=== PATIENT | male | born 1975 | race Hispanic/Latino ===

== ENCOUNTER 2020-04-20 01:25 | Inpatient (IN) | payer SELFPAY ==
[~2020-04-20 01:25] MED LIST: CALCIUM CHLORIDE 1,000 MG/10 ML SYRINGE IV ONE; EPINEPHrine 1 MG/10 ML SYRINGE ONE; SODIUM BICARB 8.4% 50 MEQ/50 ML SYRINGE IV ONE
[2020-04-20] MEDS ORDERED: NORepinephrine/NS 4 MG-250 ML 4 MG/250 ML BAG IV ONE ×4 (01:42→10:28)
[2020-04-20] MEDS: NORepinephrine/NS 4 MG-250 ML 4 MG/250 ML BAG IV SCH ×2 (01:50→05:48)
[2020-04-20] MEDS ORDERED: SODIUM CHLORIDE 0.9% 1000 ML 1,000 ML IV ONE ×3 (01:50→06:41)
[2020-04-20] MEDS ORDERED: LIP THERAPY VASELINE TP PRN (01:52)
[2020-04-20] MEDS ORDERED: MINERAL OIL/PETROLATUM, WHITE OPHTH OINT 3.5 GM OU PRN (01:52)
--- NOTE | 2020-04-20 02:03 | Emergency Department Report ---
ED CPR HPI - General Stated Complaint: CARDIAC ARREST Time Seen by Provider: 04/20/20 01:50 Source: EMS Mode of arrival: Stretcher Limitations: Other (cardiac arrest, unresponsive patient) - History of Present Illness Initial Comments: CC: cardiac arrest HPI: THis is a 44 yo male with hx of diabetes mellitus, heroin and methamphetamine use who presents in cardiac arrest. Last seen awake/normal around midnight. Friends at a house called 911. EMS arrived. Found patient un responsive. No pulse. Rhythm asystole. Patient was given two doses of epinephrine as well as Narcan. Blood glucose was normal.. Intubated with ETT. IO device inserted at left tibia. Patient was in his normal state of health today. Unclear if patient used heroin or methamphetamine this evening. Hx obtained by sister Sangita Man . Sister explained that her brother the patient Mr. Pichardo has not used drugs in over 10 years. He was recently evicted from his parents home 1-1/2 months ago. He did not get along with his father. Patient may have been depressed. He lost his long-term girlfriend of several years in November. Girlfriend in November. Sister also explained that patient has severe sepsis due to cellulitis 3 years ago. He was evaluated treated at [facility]. He required mechanical ventilation at that time due to severe illness. Complaint: found unresponsive Place: other (found at a house) Initial Findings in the Field: unresponsive, no pulse ROSC in the Field: No Treatments Prior to Arrival: intubation, epinephrine mgs # (2 doses of epinephrine) - Related Data Allergies Allergy/AdvReac Type Severity Reaction Status Date / Time Unable to Assess Allergy Unverified 04/20/20 03:05 ED Review of Systems ROS: Stated complaint: CARDIAC ARREST Other details as noted in HPI Comment: Unobtainable due to pts medical conditions (Cardiac arrest, unresponsive patient) ED Past Medical Hx - Past Medical History Hx Diabetes: Yes Additional medical history: Polysubstance abuse - Surgical History Additional Surgical History: Unable to obtain information due to patient's clinical status - Social History Substance Use Type: Heroin, Methamphetamines ED Physical Exam - General Limitations: Other (Unresponsive status, cardiac arrest) General appearance: other (Lifeless, no spontaneous movement, eyes open) - Head Head exam: Present: atraumatic, normocephalic - Eye Eye exam: Present: other (Fixed dilated nonreactive pupils, dry corneas) - ENT ENT exam: Present: other (Pale cyanotic mucosa, no oropharyngeal swelling, no f acial trauma) - Neck Neck exam: Present: normal inspection - Respiratory Respiratory exam: Present: other (Equal coarse breath sounds with ventilation, no spontaneous respirations) - Cardiovascular Cardiovascular Exam: Present: other (No auscultated cardiac sounds) - GI/Abdominal GI/Abdominal exam: Present: soft, distended - Extremities Exam Extremities exam: Present: other (No deformity, IO device inserted left tibia) - Neurological Exam Neurological exam: Present: other (No response to pain or voice) - Psychiatric Psychiatric exam: Present: other (No response to pain or voice) - Skin Skin exam: Present: cyanosis, pallor ED Course Vital Signs 04/20/20 04/20/20 04/20/20 01:28 01:30 01:45 Pulse Rate 114 H 124 H 67 Respiratory 120 H 23 20 Rate Blood Pressure 69/27 O2 Sat by Pulse 89 Oximetry 04/20/20 04/20/20 04/20/20 02:00 02:09 02:16 Pulse Rate 83 90 84 Respiratory 20 8 L Rate Blood Pressure 123/70 161/90 147/88 O2 Sat by Pulse 100 100 100 Oximetry 04/20/20 04/20/20 04/20/20 02:30 02:46 03:00 Pulse Rate 90 89 93 H Respiratory 14 20 16 Rate Blood Pressure 159/92 143/74 149/73 O2 Sat by Pulse Oximetry 04/20/20 04/20/20 04/20/20 03:15 03:31 04:25 Pulse Rate 94 H 94 H 95 H Respiratory 20 13 Rate Blood Pressure 153/81 146/83 153/81 O2 Sat by Pulse 100 Oximetry 04/20/20 04/20/20 04/20/20 04:30 04:45 05:01 Pulse Rate 96 H 97 H 97 H Respiratory 20 21 21 Rate Blood Pressure 111/67 116/59 93/41 O2 Sat by Pulse 100 100 100 Oximetry - Central Line Placement Right Femoral Consent Obtained: emergent situation Time Out Performed: Yes Patient Placed on Monitor/Pulse Ox: Yes Prep: mask, gown, gloves, other (Drape cap) Central Line Prep: Povidone-Iodine 1%, sterile drapes applied Ultrasound Used for Placement: No Central Line Lumen Inserted: triple Bloods Obtained for Lab: Yes Central Line Position: good blood return, sutured in place with nyl, other (Biopatch) Dressing Applied: Tegaderm, other (Biopatch) Patient Tolerated Procedure: well Complications: none ED Medical Decision Making - Lab Data Result diagrams: 04/20/20 02:08 04/20/20 Unknown - Medical Decision Making Patient presents in cardiac arrest. History of polysubstance abuse diabetes mellitus. Patient was glucose hemic according to EMS report. Patient received approximately 20 to 25 minutes of ACLS resuscitation Per EMS. Upon arrival patient's initial rhythm was PEA bradycardia. No initial pulse upon arrival. With resuscitation, return of spontaneous circulation achieved in the emergency department. I Then inserted femoral central venous catheter. Patient was initially normotensive after resuscitation. He then developed hypotension. He received Levophed. Patient significant other arrived. I spoke extensively with significant other. I informed her that I was concerned for brain . SHe understands patient is in critical condition. I also spoke with mother per phone. Differential diagnosis includes heroin overdose, acute myocardial infarction, pulmonary embolism. Mrs. Sangita Man will be the clinical decision maker. Her phone number is I do not see evidence of infection. I suspect lactic acidosis is due to cellular ischemia due to lack of blood flow to the organs. I also suspect AST ALT is related to severe shock due to circulatory collapse. I spoke with Dr. Sandhu radiologist regarding multiple critical findings on CT imaging. CT head revealed diffuse edema loss of sulci. Possible subarachnoid hemorrhage. CT of the chest showed moderate sized pneumothorax and right-sided rib fractures. CT abdomen revealed dilated small bowel. Radiologist stated that small bowel had findings of hypoperfusion. I spoke with Neurosurgeon Dr. Thao who recommended brain examination by neurology or critical care physician. Dr. Lawrence critical care physican I suspect pneumothorax and right-sided rib fractures were the result of chest compressions, not trauma. Due to patient's grave prognosis, I have elected not to insert thoracostomy tube. I Anticipate withdrawal of care. I spoke with sister who is a STE[employer]AR OPERATOR Emergency and former ER nurse. She understands dire situation. Critical Care Time: Yes Critical care time in (mins) excluding proc time.: 70 Critical care attestation.: If time is entered above; I have spent that time in minutes in the direct care of this critically ill patient, excluding procedure time. 70 minutes of critical care time excluding procedures were used in the care of the patient. I am in charge nurse received radio call from EMS. Once we receive the report, we called respiratory therapist nursing team and phlebotomy to the bedside. We prepared for patient's arrival with bedise VIDEO laryngoscopy, suction and ACLS box. Team awaited for patient's arrival in the resuscitation room. Upon patient's arrival we immediately began chest compressions and ACLS resuscitation while obtaining history from EMS at the bedside. I discussed treatment plan with the nursing team members and respiratory therapist. I assisted respiratory therapist with ventilation settings. Patient's initial oxygen saturation 72% with FiO2 100% PEEP of 10. I reviewed electronic record. I kept the family members informed. I had extensive conversations with girlfriend, mother and sister. I discussed end of life measures with sister who is a healthcare worker. Patient required multiple interventions and reassessments. I was unable to attend to other patients for 40 minutes due to patient's critical status. ED Disposition Clinical Impression: Cardiac arrest, Anoxic encephalopathy, Shock, cardiogenic, Polysubstance abuse, Accidental drug overdose Disposition: DC-09 OP ADMIT IP TO THIS HOSP Is pt being admited?: Yes Condition: Poor
[2020-04-20 02:35] LABS: Mean Corpuscular HGB Conc 31 % (32-34); Mean Corpuscular Volume 97 fl (84-94); Platelet Count 200 K/mm3 (140-440); Red Blood Count 4.34 M/mm3 (3.65-5.03); Red Cell Distribution Width 15.2 % (13.2-15.2)
[2020-04-20 02:36] LABS: Hematocrit 42.2 % (35.5-45.6)
[2020-04-20 02:38] LABS: Basophils # (Auto) 0.1 K/mm3 (0.0-0.1); Basophils % (Auto) 0.5 % (0.0-1.8); Eosinophils # (Auto) 0.1 K/mm3 (0.0-0.4); Lymphocytes % (Auto) 33.9 % (13.4-35.0); Monocytes # (Auto) 0.8 K/mm3 (0.0-0.8); Monocytes % (Auto) 5.6 % (0.0-7.3)
--- NOTE | 2020-04-20 02:41 | XRay Report ---
CHEST 1 VIEW INDICATION: Altered Mental Status. COMPARISON: None . FINDINGS: SUPPORT DEVICES: Endotracheal tube in satisfactory position at the level the clavicles. NG tube tip p rojects at the GE junction and should be advanced another 5-10 cm HEART: Within normal limits. LUNGS/PLEURA: Moderate interstitial edema. No appreciable effusion. ADDITIONAL FINDINGS: None. IMPRESSION: 1. Moderate interstitial edema. 2. Support devices as above. Signer Name: Stephan Sandhu MD Signed: 04/20/2020 2:37 AM Workstation Name: [id number]
[2020-04-20 03:21] LABS: Albumin 3.2 g/dL (3.9-5); Calcium 9.9 mg/dL (8.4-10.2)
[2020-04-20] MEDS ORDERED: SODIUM CHLORIDE 0.9% 1000 ML 1,000 ML ONE ×2 (04:29→06:38)
[2020-04-20] MEDS ORDERED: ACETAMINOPHEN 325 MG TAB PO PRN (05:17)
--- NOTE | 2020-04-20 05:31 | Cat Scan Report ---
CTA chest with contrast CT abdomen and pelvis with contrast INDICATION : Post-Cardiac Arrest / Found down and unresposive. TECHNIQUE: Axial imaging performed through the chest, with contrast bolus timing set to maximize opa cification of the pulmonary arteries. 3-plane MIP reformatted images were obtained. Axial imaging was then performed through the abdomen and pelvis with the use of contrast. [facility] CT dose reduction for ALARA by means of automated exposure control. 100 mL of intravenous contrast administered. COMPARISON: None FINDINGS: CTA CHEST: Bolus: Contrast bolus timing is adequate. PTE: No filling defect is present to suggest PTE. Mediastinum: Heart and great vessels appear normal. No pathologic mediastinal adenopathy. Lungs: There is streaky airspace disease in both lungs in a moderate size pneumothorax on the right. Bones: Several segmental right-sided rib fractures are present involving ribs 1-8 on the right. Deg enerative changes in the spine with nothing acute. CT ABDOMEN/PELVIS: There is mild gallbladder wall edema with no stone disease or significant stranding. Small bowel demo nstrates mild diffuse mucosal enhancement and fluid-filled appearance. The liver, spleen, pancreas, adrenals, kidneys, and proximal GI tract appear unremarkable. Urinary bladder is collapsed with Card catheter in place. No pelvic free fluid. No acute colonic abn ormality. IMPRESSION: 1. Negative for PTE. 2. Moderate-sized right-sided pneumothorax likely caused by multiple right-sided rib fractures. 3. Streaky multifocal airspace disease throughout the lungs. 4. Abnormal appearance of the small bowel diffusely and gallbladder may be seen with hypoperfusion in this patient who is reportedly hypertensive. COMMUNICATION: Time of Communication (STORAGE MANAGEMENT ARCHITECT/CDT): 4:26 AM Licensed Practitioner Receiving Report: Dr. Leigh Signer Name: Stephan Sandhu MD Signed: 04/20/2020 5:27 AM Workstation Name: [email or web address]
--- NOTE | 2020-04-20 05:31 | Cat Scan Report ---
CTA chest with contrast CT abdomen and pelvis with contrast INDICATION : Post-Cardiac Arrest / Found down and unresposive. TECHNIQUE: Axial imaging performed through the chest, with contrast bolus timing set to maximize opa cification of the pulmonary arteries. 3-plane MIP reformatted images were obtained. Axial imaging was then performed through the abdomen and pelvis with the use of contrast. [facility] are [facility] using CT dose reduction for ALARA by means of automated exposure control. 100 mL of intravenous contrast administered. COMPARISON: None FINDINGS: CTA CHEST: Bolus: Contrast bolus timing is adequate. PTE: No filling defect is present to suggest PTE. Mediastinum: Heart and great vessels appear normal. No pathologic mediastinal adenopathy. Lungs: There is streaky airspace disease in both lungs in a moderate size pneumothorax on the right. Bones: Several segmental right-sided rib fractures are present involving ribs 1-8 on the right. Deg enerative changes in the spine with nothing acute. CT ABDOMEN/PELVIS: There is mild gallbladder wall edema with no stone disease or significant stranding. Small bowel demo nstrates mild diffuse mucosal enhancement and fluid-filled appearance. The liver, spleen, pancreas, adrenals, kidneys, and proximal GI tract appear unremarkable. Urinary bladder is collapsed with Card catheter in place. No pelvic free fluid. No acute colonic abn ormality. IMPRESSION: 1. Negative for PTE. 2. Moderate-sized right-sided pneumothorax likely caused by multiple right-sided rib fractures. 3. Streaky multifocal airspace disease throughout the lungs. 4. Abnormal appearance of the small bowel diffusely and gallbladder may be seen with hypoperfusion in this patient who is reportedly hypertensive. COMMUNICATION: Time of Communication (KITCHEN MECHANIC/CDT): 4:26 AM Licensed Practitioner Receiving Report: Dr. Leigh Signer Name: Stephan Sandhu MD Signed: 04/20/2020 5:27 AM Workstation Name: [employer]
[2020-04-20 05:32] LABS: Bilirubin,Urine NEG (Negative); Blood,Urine SM (Negative); Color,Urine Yellow (Yellow); Mucus,Urine 2+ /HPF; Sperm,Urine 3+ /HPF (NP)
--- NOTE | 2020-04-20 05:32 | Cat Scan Report ---
CT head without contrast INDICATION : Altered Mental Status / Found down and unresponsive.. TECHNIQUE: Axial imaging performed from the skull apex through the skull base without the use of con trast. All CT scans at this location are performed using CT dose reduction for ALARA by means of aut omated exposure control. COMPARISON: None FINDINGS: Parenchyma: There is diffuse loss of crouch-white differentiation throughout the brain and loss of sul ci suggesting diffuse edema. There is also dural enhancement diffusely with questionable small diffus e subarachnoid hemorrhage. Ventricles: Ventricles are normal in size and appear symmetric. Soft tissues: Soft tissues including the orbits appear normal. Bones: No acute osseous abnormality. Sinuses: Sinuses and mastoid air cells are clear. IMPRESSION: Grossly abnormal brain as outlined above suggesting anoxic brain injury with small scatte red subarachnoid hemorrhage. COMMUNICATION: Time of Communication (MECHANICAL COMMISSIONING ENGINEER/CDT): 4:26 AM Licensed Practitioner Receiving Report: Dr. Leigh Signer Name: Stephan Sandhu MD Signed: 04/20/2020 5:27 AM Workstation Name: [id number]
[2020-04-20 05:33] LABS: Protein,Urine >500 mg/dL (Negative)
[2020-04-20 05:34] LABS: Amphetamine Screen,Urine PRESUMPTIVE POSITIVE; Benzodiazepines Screen,Urine PRESUMPTIVE NEGATIVE; Cannabinoid Screen,Urine PRESUMPTIVE NEGATIVE; Cocaine Screen,Urine PRESUMPTIVE NEGATIVE; Methadone Screen,Urine PRESUMPTIVE NEGATIVE; Opiate Screen,Urine PRESUMPTIVE NEGATIVE
[2020-04-20 05:55] LABS: ABG HCO3 18.2 mmol/L (20.0-26.0); ABG Methemoglobin 0.6 % (0.0-1.5); ABG Oxygen Saturation 98.9 % (95.0-99.0); ABG PCO2 47.8 mm Hg; ABG PO2 173.8 mm Hg (80.0-90.0)
[2020-04-20 05:58] LABS: ABG PH 7.197 pH Units (7.350-7.450)
--- NOTE | 2020-04-20 06:27 | History and Physical Report ---
History of Present Illness Date of examination: 04/20/20 Date of admission: 04/20/20 05:07 Chief complaint: Unresponsiveness History of present illness: History of presenting Illness, patient is a 44-year-old male brought into the emergency room as a case of cardiac arrest with CPR in progress. Patient was found unresponsive at home and family called 911, when EMS got to the scene patient was found to be unresponsive with no pulse and with reading of asystole. CPR was initiated and patient received epinephrine intravenously, and had an intraosseous access put in the left tibial area, CPR was continued in the emergency room with patient regaining pulse and blood pressure but remained unconscious with no form of movement and patient was intubated and hooked up to the mechanical ventilation. Patient's further evaluation showed CT of the head with finding of anoxic brain injury with some intracranial hemorrhage, family said to keep patient still intubated and on IV pressors until they get to the hospital. Patient has past history of heroine and methamphetamine abuse but is not clear whether patient did any drugs prior to becoming unresponsive. Past History Past Medical History: diabetes, other (POLYSUBSTANCE ABUSE) Medications and Allergies Allergies Allergy/AdvReac Type Severity Reaction Status Date / Time Unable to Assess Allergy Unverified 04/20/20 03:05 Active Meds: Active Medications Acetaminophen (Tylenol) 650 mg PO Q4H PRN PRN Reason: Fever >101 Heparin Sodium (Porcine) (Heparin) 5,000 unit SUB-Q Q12HR GABRIELLE Hydrophilic Ointment (Vaseline Lip Therapy) 1 applic TP Q2HR PRN PRN Reason: Dry Lips Norepinephrine (Levophed Drip 4 Mg/Ns 250 Ml) 4 mg in 250 mls @ 7.5 mls/hr IV TITR GABRIELLE; Protocol Last Admin: 04/20/20 05:48 Dose: 16 mcg/min, 60 mls/hr Documented by: Sodium Chloride (Nacl 0.9% 1000 Ml) 1,000 mls @ 999 mls/hr IV BOLUS ONE Stop: 04/20/20 06:22 Last Admin: 04/20/20 05:26 Dose: 999 mls/hr Documented by: Multi-Ingred Cream/Lotion/Oil/Oint (Artificial Tears Ophth Oint) 1 applic OU Q4HR PRN PRN Reason: Dry Eye(s) Review of Systems Constitutional: no fever, no chills, no sweats, no night sweats Eyes: bilateral: other (NO BILATERAL EYE SYMPTOMS) Ears, nose, mouth and throat: no ear pain Cardiovascular: no chest pain, no orthopnea, no palpitations, no syncope, no lightheadedness, no shortness of breath Respiratory: no cough, no cough with sputum, no shortness of breath, no congestion, no wheezing Gastrointestinal: no abdominal pain, no nausea, no vomiting, no diarrhea, no constipation, no hematemesis, no hematochezia Genitourinary Male: no hematuria, no flank pain, no discharge, no urinary frequency, no urinary hesitancy, no nocturia Rectal: no pain Musculoskeletal: no neck stiffness, no neck pain, no shooting arm pain, no arm numbness/tingling, no low back pain Integumentary: no rash, no jaundice Neurological: change in mentation, no head injury, no weakness, no parathesias, no numbness, no tingling, no seizures, no syncope, no tremors, no ataxia Psychiatric: no anxiety Endocrine: no polyphagia, no polydipsia, no polyuria, no nocturia Exam - Constitutional Vitals: Temp Pulse Resp BP Pulse Ox 97 H 21 93/41 100 04/20/20 05:01 04/20/20 05:01 04/20/20 05:01 04/20/20 05:01 General appearance: Present: other (UNCONSCIOUS INTUBATED AND MECHANICALLY VENTILATED) - Neck Neck: Present: supple - Respiratory Respiratory effort: other (INTUBATED AND MECHANICALLY VENTILATED) - Cardiovascular Rhythm: regular Heart Sounds: Present: S1 & S2. Absent: gallop, systolic murmur, diastolic murmur - Extremities Extremities: no ischemia, No edema Peripheral Pulses: within normal limits - Abdominal General gastrointestinal: Present: soft, non-tender, non-distended. Absent: ten [place], distended, rigid, hepatomegaly, splenomegaly, mass Male genitourinary: Present: deferred - Rectal Rectal Exam: deferred - Integumentary Integumentary: Present: clear, warm, dry - Neurologic Neurologic: other (UNRESPONSIVE) HEART Score - HEART Score Risk factors: 1-2 risk factors Troponin: Troponin T < 0.010 ng/mL (0.00-0.029) 04/20/20 02:08 Troponin: < normal limit - Critical Actions Critical Actions: 0-3 pts:0.9-1.7%risk of adverse cardiac event.Candidate for discharge Results - Labs CBC & Chem 7: 04/20/20 02:08 04/20/20 Unknown Labs: Laboratory Last Values WBC 14.0 K/mm3 (4.5-11.0) H 04/20/20 02:08 RBC 4.34 M/mm3 (3.65-5.03) 04/20/20 02:08 Hgb 13.0 gm/dl (11.8-15.2) 04/20/20 02:08 Hct 42.2 % (35.5-45.6) 04/20/20 02:08 MCV 97 fl (84-94) H 04/20/20 02:08 MCH 30 pg (28-32) 04/20/20 02:08 MCHC 31 % (32-34) L 04/20/20 02:08 RDW 15.2 % (13.2-15.2) 04/20/20 02:08 Plt Count 200 K/mm3 (140-440) 04/20/20 02:08 Lymph % (Auto) 33.9 % (13.4-35.0) 04/20/20 02:08 Alexander % (Auto) 5.6 % (0.0-7.3) 04/20/20 02:08 Eos % (Auto) 1.0 % (0.0-4.3) 04/20/20 02:08 Baso % (Auto) 0.5 % (0.0-1.8) 04/20/20 02:08 Lymph # (Auto) Engineering Operations Leader 04/20/20 02:08 Alexander # (Auto) 0.8 K/mm3 (0.0-0.8) 04/20/20 02:08 Eos # (Auto) 0.1 K/mm3 (0.0-0.4) 04/20/20 02:08 Baso # (Auto) 0.1 K/mm3 (0.0-0.1) 04/20/20 02:08 Seg Neutrophils % 59.0 % (40.0-70.0) 04/20/20 02:08 Seg Neutrophils # 8.3 K/mm3 (1.8-7.7) H 04/20/20 02:08 ABG pH Cancelled 04/20/20 05:35 POC ABG pCO2 Cancelled 04/20/20 05:35 ABG pCO2 47.8 mm Hg 04/20/20 05:35 POC ABG pO2 Cancelled 04/20/20 05:35 ABG pO2 173.8 mm Hg (80.0-90.0) H 04/20/20 05:35 POC ABG HCO3 Cancelled 04/20/20 05:35 ABG HCO3 18.2 mmol/L (20.0-26.0) L 04/20/20 05:35 ABG O2 Saturation 98.9 % (95.0-99.0) 04/20/20 05:35 ABG O2 Content Cancelled 04/20/20 05:35 POC ABG Base Excess Cancelled 04/20/20 05:35 ABG Base Excess -10.0 mmol/L (-2.0-3.0) L 04/20/20 05:35 ABG Hemoglobin Cancelled 04/20/20 05:35 ABG Oxyhemoglobin Cancelled 04/20/20 05:35 ABG Carboxyhemoglobin 2.2 % (0.0-5.0) 04/20/20 05:35 ABG Methemoglobin Cancelled 04/20/20 05:35 ABG Sodium Cancelled 04/20/20 05:35 ABG Potassium Cancelled 04/20/20 05:35 ABG Chloride Cancelled 04/20/20 05:35 ABG Glucose Cancelled 04/20/20 05:35 ABG Lactate Cancelled 04/20/20 05:35 Oxyhemoglobin 96.1 % (95.0-99.0) 04/20/20 05:35 Carboxyhemoglobin Cancelled 04/20/20 05:35 FiO2 Cancelled 04/20/20 05:35 Sodium 139 mmol/L (137-145) 04/20/20 Unknown Potassium 4.8 mmol/L (3.6-5.0) 04/20/20 Unknown Chloride 98.2 mmol/L (98-107) 04/20/20 Unknown Carbon Dioxide 16 mmol/L (22-30) L 04/20/20 Unknown Anion Gap 30 mmol/L 04/20/20 Unknown BUN 15 mg/dL (9-20) 04/20/20 Unknown Creatinine 1.6 mg/dL (0.8-1.3) H 04/20/20 Unknown Estimated GFR 47 ml/min 04/20/20 Unknown BUN/Creatinine Ratio 9 % 04/20/20 Unknown Glucose 348 mg/dL (75-100) H 04/20/20 Unknown Lactic Acid 3.60 mmol/L (0.7-2.0) H* 04/20/20 04:57 Calcium 9.9 mg/dL (8.4-10.2) 04/20/20 Unknown Total Bilirubin 0.30 mg/dL (0.1-1.2) 04/20/20 Unknown AST 233 units/L (5-40) H 04/20/20 Unknown ALT 245 units/L (7-56) H 04/20/20 Unknown Alkaline Phosphatase 117 units/L (35-129) 04/20/20 Unknown Total Creatine Kinase 430 units/L (55-170) H 04/20/20 02:08 Troponin T < 0.010 ng/mL (0.00-0.029) 04/20/20 02:08 Total Protein 5.3 g/dL (6.3-8.2) L 04/20/20 Unknown Albumin 3.2 g/dL (3.9-5) L 04/20/20 Unknown Albumin/Globulin Ratio 1.5 % 04/20/20 Unknown Arterial Blood Glucose Cancelled 04/20/20 05:35 Arterial Blood Ionized Calcium Cancelled 04/20/20 05:35 Urine Color Yellow (Yellow) 04/20/20 01:51 Urine Turbidity Cloudy (Clear) 04/20/20 01:51 Urine pH 8.0 (5.0-7.0) H 04/20/20 01:51 Ur Specific Bruno 1.016 (1.003-1.030) 04/20/20 01:51 Urine Protein >500 mg/dL (Negative) 04/20/20 01:51 Urine Glucose (UA) 150 mg/dL (Negative) 04/20/20 01:51 Urine Ketones Neg mg/dL (Negative) 04/20/20 01:51 Urine Blood Sm (Negative) 04/20/20 01:51 Urine Nitrite Neg (Negative) 04/20/20 01:51 Urine Bilirubin Neg (Negative) 04/20/20 01:51 Urine Urobilinogen 2.0 mg/dL (<2.0) 04/20/20 01:51 Ur Leukocyte Esterase Neg (Negative) 04/20/20 01:51 Urine WBC (Auto) 16.0 /HPF (0.0-6.0) H 04/20/20 01:51 Urine RBC (Auto) 19.0 /HPF (0.0-6.0) 04/20/20 01:51 U Epithel Cells (Auto) < 1.0 /HPF (0-13.0) 04/20/20 01:51 Urine Mucus 2+ /HPF 04/20/20 01:51 Urine Sperm 3+ /HPF (MANAGER APPLICATION) 04/20/20 01:51 Salicylates < 0.3 mg/dL (2.8-20.0) L 04/20/20 02:08 Urine Opiates Screen Presumptive negative 04/20/20 01:51 Urine Methadone Screen Presumptive negative 04/20/20 01:51 Acetaminophen 5.0 ug/mL (10.0-30.0) L 04/20/20 02:08 Ur Barbiturates Screen Presumptive negative 04/20/20 01:51 Ur Phencyclidine Scrn Presumptive negative 04/20/20 01:51 Ur Amphetamines Screen Presumptive positive 04/20/20 01:51 U Benzodiazepines Scrn Presumptive negative 04/20/20 01:51 Urine Cocaine Screen Presumptive negative 04/20/20 01:51 U Marijuana (THC) Screen Presumptive negative 04/20/20 01:51 Drugs of Abuse Note Disclamer 04/20/20 01:51 Plasma/Serum Alcohol < 0.01 % (0-0.07) 04/20/20 02:08 Microbiology: Microbiology 04/20/20 02:21 Peripheral/Venous Blood Culture - Preliminary Culture in Progress 04/20/20 02:08 Peripheral/Venous Blood Culture - Preliminary Culture in Progress Assessment and Plan - Patient Problems (1) Anoxic encephalopathy Current Visit: Yes Status: Acute Plan to address problem: NEUROLOGY CONSULT (2) Cardiac arrest Current Visit: Yes Status: Acute Plan to address problem: 1. CPR 2. INTUBATION AND MECHANICAL VENTILATION 3. CARDIOLOGY CONSULT 4. CRITICAL CARE CONSULT 5. I.V PRESSORS FOR BP SUPPORT (3) Polysubstance abuse Current Visit: Yes Status: Acute Plan to address problem: 1 COUNSELING
[2020-04-20] MEDS: EPINEPHrine 1 MG/1 ML 8 MG in SODIUM CHLORIDE 0.9% 250ML 242 ML IV SCH ×9 (06:41→10:07)
[2020-04-20] MEDS ORDERED: NORepinephrine 8 MG in SODIUM CHLORIDE 0.9% 250ML 242 ML IV SCH (07:30)
[2020-04-20] MEDS ORDERED: HEPARIN 5,000 UNIT/1 ML VIAL SUB-Q SCH (10:00)
[2020-04-20] MEDS ORDERED: HEPARIN 5,000 UNIT/1 ML VIAL ONE (10:36)
--- NOTE | 2020-04-20 10:43 | Progress Note ---
Subjective Date of service: 04/20/20 Interval history: CONSULT DICTATED Objective Vital Signs Temp Pulse Resp BP Pulse Ox 04/20/20 10:31 98 H 24 138/77 88 04/20/20 10:15 100 H 20 69/37 86 04/20/20 10:00 102 H 18 61/40 04/20/20 09:45 104 H 20 64/35 04/20/20 09:38 97.6 F 04/20/20 09:31 96 H 15 74/32 04/20/20 09:15 103 H 20 112/43 90 04/20/20 09:00 102 H 20 82/52 91 04/20/20 08:45 101 H 21 72/51 91 04/20/20 08:30 99 H 20 80/47 90 04/20/20 08:15 98 H 20 57/37 91 04/20/20 08:01 93 H 20 72/38 91 04/20/20 08:00 20 90 04/20/20 07:55 91 H 55/31 91 04/20/20 07:45 95 H 20 67/44 95 04/20/20 07:38 96 H 20 89/48 95 04/20/20 07:37 95 H 20 94/49 95 04/20/20 07:35 96 H 21 94/49 95 04/20/20 07:33 95 H 20 85/43 95 04/20/20 07:31 95 H 20 85/43 96 04/20/20 07:29 95 H 20 84/53 96 04/20/20 07:27 95 H 19 89/53 97 04/20/20 07:26 95 H 20 89/53 95 04/20/20 07:25 94 H 20 100/55 96 04/20/20 07:23 94 H 18 100/55 97 04/20/20 07:21 94 H 20 91/52 97 04/20/20 07:15 93 H 20 93/53 96 04/20/20 07:01 91 H 20 101/57 97 04/20/20 06:45 92 H 20 55/36 97 04/20/20 06:31 93 H 20 40/17 94 04/20/20 06:15 96 H 20 97/34 94 04/20/20 06:01 96 H 20 102/46 95 04/20/20 05:45 96 H 20 93/41 97 04/20/20 05:31 96 H 13 97 04/20/20 05:16 96 H 20 93/41 98 04/20/20 05:01 97 H 21 93/41 100 04/20/20 04:45 97 H 21 116/59 100 04/20/20 04:30 96 H 20 111/67 100 04/20/20 04:25 95 H 153/81 04/20/20 03:31 94 H 13 146/83 100 04/20/20 03:15 94 H 20 153/81 04/20/20 03:00 93 H 16 149/73 04/20/20 02:46 89 20 143/74 04/20/20 02:30 90 14 159/92 04/20/20 02:16 84 8 L 147/88 100 04/20/20 02:09 90 161/90 100 04/20/20 02:00 83 20 123/70 100 04/20/20 01:45 67 20 69/27 89 04/20/20 01:30 124 H 23 04/20/20 01:28 114 H 120 H - Labs and Meds Cardiac Enzymes 04/20/20 Range/Units Unknown AST 233 H (5-40) units/L CBC 04/20/20 Range/Units 02:08 WBC 14.0 H (4.5-11.0) K/mm3 RBC 4.34 (3.65-5.03) M/mm3 Hgb 13.0 (11.8-15.2) gm/dl Hct 42.2 (35.5-45.6) % Plt Count 200 (140-440) K/mm3 Lymph # (Auto) Car [place] # (Auto) 0.8 (0.0-0.8) K/mm3 Eos # (Auto) 0.1 (0.0-0.4) K/mm3 Baso # (Auto) 0.1 (0.0-0.1) K/mm3 Comprehensive Metabolic Panel 04/20/20 Range/Units Unknown Sodium 139 (137-145) mmol/L Potassium 4.8 (3.6-5.0) mmol/L Chloride 98.2 (98-107) mmol/L Carbon Dioxide 16 L (22-30) mmol/L BUN 15 (9-20) mg/dL Creatinine 1.6 H (0.8-1.3) mg/dL Glucose 348 H (75-100) mg/dL Calcium 9.9 (8.4-10.2) mg/dL AST 233 H (5-40) units/L ALT 245 H (7-56) units/L Alkaline Phosphatase 117 (35-129) units/L Total Protein 5.3 L (6.3-8.2) g/dL Albumin 3.2 L (3.9-5) g/dL
--- NOTE | 2020-04-20 11:41 | Event Note ---
ED MD CARMELO marley Called to the room for cardiac arrest in progress. The patient is admitted vented patient with anoxic brain injury. Per nursing the patient entered asystole and ACLS protocols were initiated. Upon my arrival the patient was being bagged via ET tube by respiratory therapy and receiving chest compressions from nursing. ACLS protocols were continued with eventual return of spontaneous circulation. Case discussed with hospitalist Dr. Taylor outside of room. Patient left in the care of Dr. Taylor Pulmonary: Breath sounds equal bilaterally with bagging Cardiovascular: No heart sounds in asystole initially, after return of spontaneous circulation regular rate and rhythm Neuro: GCS 3 T
--- NOTE | 2020-04-20 12:34 | Event Note ---
ED MD CODE LEYLA marley Called to the room for cardiac arrest in progress. Per nursing the patient again entered asystole. As I enter the room the patient is being bagged via ET tube and receiving chest compressions from nursing. ACLS protocols were continued but there was no return of spontaneous circulation. Patient . This was discussed with hospitalist Dr. Taylor at bedside
[2020-04-20 13:13] VITALS: BP 237/87
--- NOTE | 2020-04-20 13:16 | Event Note ---
Date: 04/20/20 I called patient's sister the next of kin Sangita Man at [phone] I already discussed with her during the previous conversation in detail patient's poor prognosis, I explained to her that patient had multiple cardiac arrests During the hospital stay , could not be revived per ACLS protocol during the last code And patient was pronounced at 12:32 on 04/30/2020 Time of ; 12:32 on 04/30/2020
--- NOTE | 2020-04-20 13:16 | Death Summary ---
Summary - Providers Date of service: 04/20/20 Consults: 04/20/20 05:12 Consult to Physician [CONS] Routine Comment: Consulting Provider: BENJAMIN LOWE Physician Instructions: Reason For Exam: cardiac Arrest on the ventilator 04/20/20 05:14 Consult to Physician [CONS] Routine Comment: Consulting Provider: SALLY MARTINO Physician Instructions: Reason For Exam: Cardiopulmonary arrest 04/20/20 06:04 Consult to Physician [CONS] Stat Comment: Consulting Provider: BENJAMIN LOWE Physician Instructions: Reason For Exam: brain exam 04/20/20 07:50 Consult to Physician [CONS] Routine Comment: Consulting Provider: CHELSEA JAMES Physician Instructions: Reason For Exam: ANOXIC BRAIN INJURY ON CT HEAD REPORT Attending: JOSE WILLARD - summary Date of admission: 04/20/20 05:07 Date of : 04/20/20
--- NOTE | 2020-04-21 02:52 | Consultation ---
HISTORY OF PRESENT ILLNESS: The patient is a 44-year-old male with a history of diabetes and drug abuse, who was found unresponsive. He was asystolic and was resuscitated. It is unclear how long he was down. He is unable to give any history. He was found to be hypotensive. The family described a history of depression as of late. There is no description of cardiac or pulmonary disease. No family is present now and no old records are available. PAST MEDICAL HISTORY: There is a history of severe sepsis 3 years ago, he was hospitalized in [place] and was on mechanical ventilation. ALLERGIES: Unknown. OPERATIONS: Unknown. SOCIAL HISTORY: Smoking: No history available. Alcohol: No history available. REVIEW OF SYSTEMS: Unable to obtain. FAMILY HISTORY: Unable to obtain. PHYSICAL EXAMINATION: GENERAL: Well-developed, moderately obese, on mechanical ventilation, unresponsive. Extremities are flaccid. HEENT: Pupils are mid position and poorly responsive. NECK: Reveals no JVD or bruits. Neck is supple, no masses. LUNGS: Mild rhonchi. HEART: Heart sounds distant, regular rhythm. Possible soft S4, no murmurs. ABDOMEN: Soft. Bowel sounds intact. No masses. EXTREMITIES: No cyanosis, clubbing, edema. Peripheral pulses are intact. There are venous stasis changes about the ankles. LABORATORY DATA: EKG, nonspecific ST-T changes. Labs remarkable for elevated creatinine, mild elevation of liver enzymes. Drug screen positive for amphetamines. CAT scan of the chest describes right pneumothorax, mild pulmonary edema. IMPRESSION: 1. Status post asystolic arrest: Currently in sinus rhythm. No EKG or enzyme evidence of myocardial infarction. 2. Shock: On pressors, probably secondary to arrest, consider septic shock, neurogenic shock. 3. History of drug abuse with a positive drug screen for amphetamines. 4. Respiratory failure secondary to cardiac arrest and abnormal neurologic function: Evidence of mild pulmonary edema, probably precipitated by cardiac arrest, consider pneumonia. 5. Suspect anoxic encephalopathy given the physical findings and CAT scan of the head results. 6. Obesity. 7. History of diabetes. 8. Evidence of venous stasis. 9. Right pneumothorax. 10. Hypothermia: On the hyperthermic blanket. 11. History of depression. PLAN: Overall, the prognosis is poor. We will get an echocardiogram and continue pressors. Check cardiac enzymes. Monitor for recurrent arrhythmias. Consider Neurology consultation and pulmonary consultation. Administer fluids and monitor renal function and electrolytes. Thank you for this consultation. JOB# [id number] VANESSA/NTS
== END 2020-04-20 13:00 | DRG 918 ==
LOC: EDBD → ED 01:25 → CC1 04:12 → OBSVTOIN 05:07
PROVIDERS: ADMIT Internal Medicine; ATTEND Internal Medicine
PROC: 06HY33Z Insertion of Infusion Device into Lower Vein, Percutaneous Approach (ICD-10-PCS; principal; 2020-04-20)
PROC: 5A12012 Performance of Cardiac Output, Single, Manual (ICD-10-PCS; 2020-04-20)
PROC: 0BH17EZ Insertion of Endotracheal Airway into Trachea, Via Natural or Artificial Opening (ICD-10-PCS; 2020-04-20)
PROC: 5A1935Z Respiratory Ventilation, Less than 24 Consecutive Hours (ICD-10-PCS; 2020-04-20)
PROC: 4A033R1 Measurement of Arterial Saturation, Peripheral, Percutaneous Approach (ICD-10-PCS; 2020-04-20)
DX: T40.1X1A Poisoning by heroin, accidental (unintentional), initial encounter (principal); G93.1 Anoxic brain damage, not elsewhere classified; J93.9 Pneumothorax, unspecified; T43.621A Poisoning by amphetamines, accidental (unintentional), initial encounter; I46.9 Cardiac arrest, cause unspecified; E11.9 Type 2 diabetes mellitus without complications
CPT/HCPCS: 36415; 70450; 71045; 71275; 74177; 80053; 80307; 80320; 81001; 82140; 82550; 82803; 84484; 85025; 87040; 87070; 87086; 87205; 93005; 93306; 94002; G0378; G0480; J0171; J1644; J7030; J7050; Q9967